=== PATIENT | male | born 1975 | race Caucasian/White ===

== ENCOUNTER 2024-04-08 19:06 | Emergency (ER) | payer OTHER, SELFPAY ==
[2024-04-08 19:08] VITALS: BP 104/79; PULSE 75; RESP 18; TEMP 36.3; O2SAT 93
--- NOTE | 2024-04-08 19:10 | ECG_ITS ---
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 Measurements Intervals [place] Rate: 75 P: 40 KS: 172 QRS: 3 QRSD: 97 T: 35 QT: 386 QTc: 432 Interpretive Statements SINUS RHYTHM POSSIBLE RIGHT VENTRICULAR CONDUCTION DELAY [RSR (QR) IN V1/V2] No previous ECG available for comparison Electronically Signed On 04-09-2024 18:31:37 MOLDING PLASTERER by Michel Connelly M.D. [email or web address]
--- NOTE | 2024-04-08 19:14 | CTR_ITS ---
PROCEDURE INFORMATION: Exam: CT Head Without Contrast Exam date and time: 04/08/2024 7:22 PM Age: 48 years old Clinical indication: Injury or trauma; Fall; Blunt trauma (contusions or hematomas); Consciousness not specified; Injury date: 04/08/2024 TECHNIQUE: Imaging protocol: Computed tomography of the head without contrast. Radiation optimization: All CT scans at this facility use at least one of these dose optimization techniques: automated exposure control; mA and/or kV adjustment per patient size (includes targeted exams where dose is matched to clinical indication); or iterative reconstruction. COMPARISON: CT cervical spin wo con* [id number] 04/08/2024 7:22 PM RADIATION DOSE METRICS: Total DLP (mGy-cm): 1158.4 FINDINGS: Brain: Normal. No hemorrhage. Unremarkable white matter. No mass effect. Cerebral ventricles: No ventriculomegaly. Paranasal sinuses: Visualized sinuses are unremarkable. No fluid levels. Mastoid air cells: Visualized mastoid air cells are well aerated. Bones: Unremarkable. No acute fracture. Soft tissues: Unremarkable. CT/CT head wo con* [id number] IMPRESSION: No acute intracranial abnormality.
--- NOTE | 2024-04-08 19:14 | CTR_ITS ---
PROCEDURE INFORMATION: Exam: CT Cervical Spine Without Contrast Exam date and time: 04/08/2024 7:22 PM Age: 48 years old Clinical indication: Injury or trauma; Fall; Blunt trauma; Injury date: 04/08/2024 TECHNIQUE: Imaging protocol: Computed tomography of the cervical spine without contrast. Radiation optimization: All CT scans at this facility use at least one of these dose optimization techniques: automated exposure control; mA and/or kV adjustment per patient size (includes targeted exams where dose is matched to clinical indication); or iterative reconstruction. COMPARISON: CT head wo con* [id number] 04/08/2024 7:22 PM RADIATION DOSE METRICS: Total DLP (mGy-cm): 509.2 FINDINGS: Bones: No acute fracture. Normal alignment. No significant disc bulge or herniation. No severe spinal canal stenosis. No significant neural foraminal narrowing. Lungs: Lung apices are normal. Soft tissues: Unremarkable. CT/CT cervical spin wo con* [id number] IMPRESSION: No acute cervical spine fracture or listhesis.
--- NOTE | 2024-04-08 19:19 | ED_ITS ---
HPI - Alcohol 2 General: Chief Complaint: Alcohol Stated Complaint: Syncope, ETOH Time Seen by Provider: 04/08/24 19:08 Source: patient and EMS Mode of arrival: EMS Limitations: no limitations History of Present Illness: 48-year-old male who had been drinking t onight states that he fell in the shower does not really remember falling he states he does have some head and neck pain a empty bottle of vodka was found in the house. Patient denies any chest pain he is intoxicated appearing here at this time Associated symptoms: Deny abdominal pain, nausea or vomiting Review of Systems 2 Const: Denies: fever(s), chills, body aches or change in appetite Eyes: Denies: blurry vision or eye discomfort ENMT: Denies: throat pain or dental pain Card: Denies: chest pain Resp: Denies: dyspnea GI: Denies: abdominal pain, nausea, vomiting or diarrhea : Reports: dysuria Musc: Reports: neck pain; Denies: back pain Skin/Breast: Denies: rash Neuro: Reports: headache(s) Physical Exam 2 Const: COMMON NORMALS: no acute distress and patient oriented x3 OTHER: intoxicated HENMT: COMMON NORMALS: normocephalic HEAD & SCALP: normocephalic OTHER: abrasion to forehead Eye: COMMON NORMALS: Equal, round and reactive pupils present and EOMs intact bilaterally PUPIL: Yes Equal, round and reactive pupils present Neck/C-Spine: OTHER: in c colar Chest: COMMONS NORMALS: normal inspection of the chest and normal palpation of entire chest wall Resp: COMMON NORMALS: normal respiratory effort, No retractions, No use of accessory muscles and clear to auscultation bilaterally AUSCULTATION: clear to auscultation bilaterally Cardio: COMMON NORMALS: regular rate, regular rhythm and No murmurs present (Cardio) RATE: regular rate RHYTHM: regular rhythm GI: COMMON NORMALS: Normal to inspection, nondistended, normoactive bowel sounds present, Soft to palpation, non-tender and no masses PALPATION: Yes Soft to palpation Extremity: COMMON NORMALS: normal to inspection and full ROM Neuro: COMMON NORMALS: patient oriented x3, moves all extremities and no focal motor deficits Psych: COMMON NORMALS: mental status grossly normal, Normal thought process present and cooperative THOUGHT PROCESS: Normal thought process present Skin: COMMON NORMALS: no rashes or lesions noted and no wounds GENERAL SKIN EXAM: no rashes or lesions noted Course 2 Vital Signs: Vital signs: Vital Signs Temperature 97.4 F L 04/08/24 19:08 Pulse Rate 98 04/08/24 20:30 Respiratory Rate 16 04/08/24 20:30 Blood Pressure 160/96 04/08/24 20:30 Pulse Oximetry 98 04/08/24 19:48 Oxygen Delivery Me thod Room Air 04/08/24 19:08 MDM - Alcohol Medical Decision Making Patient presents here after a possible syncopal event and fall in the bathtub he is intoxicated family is here head CT neck CT are normal he stable for discharge he is ambulatory here. Medical Records I reviewed the patient's medical records. Lab Data I reviewed the patient's lab results. 04/08/24 19:42 04/08/24 19:42 Radiology Impressions Cervical Spine CT 04/08/24 19:14 IMPRESSION: No acute cervical spine fracture or listhesis. Head CT 04/08/24 19:14 IMPRESSION: No acute intracranial abnormality. Laboratory Results WBC 12.52 10^3/uL (3.29-11.43) H 04/08/24 19:42 RBC 4.66 10^6/uL (3.85-5.65) 04/08/24 19:42 Hgb 14.20 g/dL (11.27-16.99) 04/08/24 19:42 Hct 40.9 % (37-53) 04/08/24 19:42 MCV 87.8 fl (82-101) 04/08/24 19:42 MCH 30.5 pg (27-33) 04/08/24 19:42 MCHC 34.7 g/dL (30-55) 04/08/24 19:42 RDW 11.9 % (12.1-15.1) L 04/08/24 19:42 Plt Count 378 10^3/cmm (157-399) 04/08/24 19:42 MPV 8.6 fL (7.4-10.4) 04/08/24 19:42 Neut % (Auto) 81.7 % 04/08/24 19:42 Lymph % (Auto) 14.6 % 04/08/24 19:42 [place] % (Auto) 2.0 % 04/08/24 19:42 Eos % (Auto) 0.6 % 04/08/24 19:42 Baso % (Auto) 0.2 % 04/08/24 19:42 Neut # (Auto) 10.23 10^3/uL (1.8-7.7) H 04/08/24 19:42 Lymph # (Auto) 1.8 10^3/uL (0.8-4.8) 04/08/24 19:42 [place] # (Auto) 0.3 10^3/uL (0.2-0.9) 04/08/24 19:42 Eos # (Auto) 0.1 10^3/uL (0.0-0.8) 04/08/24 19:42 Baso # (Auto) 0.0 10^3/uL (0.0-0.1) 04/08/24 19:42 Nucleated RBC % (auto) 0 % 04/08/24 19:42 Nucleated RBCs # 0.0 /100WBC 04/08/24 19:42 Sodium 140 mmol/L (136-145) 04/08/24 19:42 Potassium 3.9 mmol/L (3.5-5.1) 04/08/24 19:42 Chloride 102 mmol/L (98-107) 04/08/24 19:42 Carbon Dioxide 26 mmol/L (22-29) 04/08/24 19:42 Anion Gap 15.9 (5-19) 04/08/24 19:42 BUN 16 mg/dL (6-20) 04/08/24 19:42 Creatinine 1.1 mg/dL (0.7-1.2) 04/08/24 19:42 GFR Calculation 71.8 mL/min (90-130) L 04/08/24 19:42 Glucose 110 mg/dL (65-115) 04/08/24 19:42 Calculated Osmolality 292 mOsm/kg (285-295) 04/08/24 19:42 Calcium 9.2 mg/dL (8.5-10.5) 04/08/24 19:42 Total Bilirubin 0.2 mg/dL (0.15-1.2) 04/08/24 19:42 AST 26 U/L (0-40) 04/08/24 19:42 ALT 38 U/L (0-41) 04/08/24 19:42 Alkaline Phosphatase 49 U/L (40-130) 04/08/24 19:42 Total Protein 7.3 g/dL (6.6-8.7) 04/08/24 19:42 Albumin 4.5 g/dL (3.5-5.2) 04/08/24 19:42 Globulin 2.8 g/dL (1.3-4.6) 04/08/24 19:42 Ethyl Alcohol 185 mg/dL (0-10) H 04/08/24 19:42 No radiology studies performed this visit EKG Data EKG 1: I personally reviewed and interpreted this EKG as follows: EKG interpretation date: 04/08/24 EKG interpretation time: 19:10 Interpretation: nsr hr [address] elevation qrs 97 qtc 415 Discharge Plan Discharge Patient Disposition: Home Clinical Impression: Alcoholic intoxication, Syncope, Closed head injury Condition: Stable Discharge Orders: Discharge ED (Routine); Ordered 04/08/24 Ordered By: Misty Sim Discharge Diet: Advance as tolerated Discharge Activity: Resume usual activity Patient Instructions: Syncope (ED), Head Injury (ED) Coding Level of Care Code ED Geospatial Technician for Joe Prado
--- NOTE | 2024-04-08 19:38 | PC.NURSE ---
Patient triaged by Ella Torrez RN.
[2024-04-08 19:48] VITALS: BP 129/83; PULSE 69; RESP 18; O2SAT 98
[2024-04-08 19:51] LABS: Basophils % 0.2 %; Eosinophils # 0.1 10^3/uL (0.0-0.8); Eosinophils % 0.6 %; Hematocrit 40.9 % (37-53); Lymphocytes # 1.8 10^3/uL (0.8-4.8); Lymphocytes % 14.6 %; Mean Corpuscular HGB Conc 34.7 g/dL (30-55); Mean Corpuscular Hemoglobin 30.5 pg (27-33); Mean Corpuscular Volume 87.8 fl (82-101); Mean Platelet Volume 8.6 fL (7.4-10.4); Monocytes # 0.3 10^3/uL (0.2-0.9); Neutrophils # 10.23 10^3/uL (1.8-7.7); Neutrophils % 81.7 %; Nucleated Red Blood Cells % 0 %; Platelet Count 378 10^3/cmm (157-399); Red Blood Count 4.66 10^6/uL (3.85-5.65); Red Cell Distribution Width 11.9 % (12.1-15.1); White Blood Count 12.52 10^3/uL (3.29-11.43)
[2024-04-08 20:11] LABS: Alanine Aminotransferase 38 U/L (0-41); Albumin Level 4.5 g/dL (3.5-5.2); Alcohol Level 185 mg/dL (0-10); Alkaline Phosphatase 49 U/L (40-130); Anion Gap 15.9 (5-19); Aspartate Amino Transferase 26 U/L (0-40); Blood Urea Nitrogen 16 mg/dL (6-20); Calcium 9.2 mg/dL (8.5-10.5); Carbon Dioxide 26 mmol/L (22-29); Chloride 102 mmol/L (98-107); Globulin 2.8 g/dL (1.3-4.6); Glomerular Filtration Rate 71.8 mL/min (90-130); Glucose 110 mg/dL (65-115); Osmolality Calculated 292 mOsm/kg (285-295); Potassium 3.9 mmol/L (3.5-5.1); Sodium 140 mmol/L (136-145); Total Bilirubin 0.2 mg/dL (0.15-1.2); Total Protein 7.3 g/dL (6.6-8.7)
[2024-04-08 20:30] VITALS: BP 160/96; PULSE 98; RESP 16
[2024-04-08 20:42] VITALS: BP 160/96; PULSE 98; RESP 18; O2SAT 100
== END 2024-04-08 20:45 | disposition home or self-care (01) ==
PROVIDERS: Emergency Provider Emergency Medicine
DX: F10.129 Alcohol abuse with intoxication, unspecified (principal); Y90.6 Blood alcohol level of 120-199 mg/100 ml; R55 Syncope and collapse; S09.8XXA Other specified injuries of head, initial encounter; W19.XXXA Unspecified fall, initial encounter
CPT/HCPCS: 36415; 70450; 72125; 80053; 80307; 85025; 93005; 99284